=== PATIENT | female | born 1945 | race Caucasian/White ===

== ENCOUNTER 2016-08-14 09:52 | Day surgery (SDC) | payer OTHER ==
[2016-08-14] MEDS ORDERED: NS 1,000 ML ONE (10:30)
[2016-08-14] MEDS ORDERED: MYLICON DROPS (DOSE) MISC ONE (15:05)
[2016-08-14] MEDS ORDERED: FENTANYL ONE (15:33)
[2016-08-14] MEDS ORDERED: DIPRIVAN 1% ONE (15:33)
[2016-08-14 15:58] VITALS: BP 118/58
[2016-08-14] MEDS ORDERED: ZOFRAN ONE (16:05)
[2016-08-14] MEDS ORDERED: XYLOCAINE-MPF 2% ONE (16:05)
--- NOTE | 2016-08-14 22:05 | OPERATIVE NOTE ---
PROCEDURE DATE: 08/14/2016 PROCEDURES: 1. Colonoscopy 2. Polypectomy. PREOPERATIVE DIAGNOSIS: History of colon polyps. POSTOPERATIVE DIAGNOSIS: 1. Colon polyps. 2. Diverticulosis. Otherwise normal colon. MEDICATIONS: MAC as per Anesthesia. SCOPE USED: Olympus GIF [id number]. HISTORY: This is a 70-year-old white female who has history of colon polyps. She was scheduled for surveillance colonoscopy. DETAILS OF OPERATION: Informed consent obtained from the patient. Procedure risks, benefits, alternatives were explained in layman's terms. She understood. All her pertinent questions were answered. Patient was brought to the endoscopy unit and was premedicated as per Anesthesia. After adequate sedation, while she was lying in left lateral position, the digital rectal exam was performed, which was normal. The scope was then gently introduced into the rectum and advanced under direct vision through the parts of colon, all the way to the cecum. The cecum was identified by ileocecal valve and the appendiceal orifice. Scope was withdrawn paying careful attention to details. Preparation was good. The visualized portion of the colon revealed a polyp in the cecum, which was diminutive, about 2-3 mm in size. Polypectomy was performed by snare cautery without difficulty. There was another polyp seen in the ascending colon which was again about 3-5 mm in size. Cold biopsy forceps was used to proceed with polypectomy. The polyp was removed without difficulty. There were another 2 polyps seen in the descending colon. One was about 5-6 mm in size, smooth surface. Polypectomy was performed by snare and cautery. The other one was diminutive, flat, less than 5 mm, which was cauterized using the snare. Scattered throughout the left colon, there were a few diverticula seen without any evidence of diverticulitis or diverticular bleeding. The rectum was examined both in straight and retroflexed view, which revealed no pathology. Scope was then removed. Patient tolerated the procedure well. No complications noted. Patient was then transferred to the recovery area in a stable condition. IMPRESSION: 1. Colon polyps. Polypectomy performed. 2. Diverticulosis, otherwise normal colon. RECOMMENDATION: Follow up the biopsy report in a couple of weeks. Follow up with me in the office in 6-8 weeks. Advised her to start MiraLAX 17 g in a glass of water or juice every day. Resume all her medications. Follow up with Dr. Dmitriy Cleaning as scheduled.
== END 2016-08-14 15:55 | disposition home or self-care (01) ==
LOC: ENDO 09:52
PROVIDERS: ATTEND Internal Medicine Gastroenterology
DX: D12.0 Benign neoplasm of cecum (principal); D12.4 Benign neoplasm of descending colon; K63.5 Polyp of colon; K57.90 Diverticulosis of intestine, part unspecified, without perforation or abscess without bleeding; E11.9 Type 2 diabetes mellitus without complications
CPT/HCPCS: 82948; 88305; J2405; J3010; J7030